=== PATIENT | female | born 1990 | race African-American/Black ===

== ENCOUNTER 2022-09-28 11:23 | Emergency (ER) | payer MEDICAID, OTHER ==
[~2022-09-28] VITALS: Ht 167.6 cm; Wt 71.0 kg
[~2022-09-28 11:23] MED LIST: IBUP-2029 MT
[2022-09-28 11:29] VITALS: O2SAT 98
[2022-09-28 12:06] LABS: BASOPHILS % 1.1 % (0.0-2.0); EOSINOPHILS % 1.9 % (0.0-5.0); HEMATOCRIT. 34.8 % (36.0-48.0); HEMOGLOBIN. 11.6 g/dL (12.0-16.0); LYMPHOCYTES % 31.5 % (20.0-50.0); MEAN CORPUSCULAR VOLUME 89.9 fL (81.0-99.0); MEAN PLATELET VOLUME 7.5 fl (7.4-10.4); MONOCYTES % 8.9 % (2.0-8.0); NEUTROPHILS % 56.6 % (40.0-76.0); PLATELET 330 x1000/uL (130-400); RED BLOOD CELL COUNT 3.87 mill/uL (4.2-5.4); RED CELL DISTRIBUTION WIDTH 13.8 % (11.6-14.6)
[2022-09-28 12:18] LABS: CHLORIDE 109 mEq/L (98-107)
[2022-09-28 12:31] LABS: CLARITY URINE CLOUDY (CLEAR); COLOR URINE YELLOW (YELLOW); KETONES URINE NEGATIVE (NEGATIVE); LEUKOCYTE ESTERASE URINE 1+ (NEGATIVE); NITRITE URINE POSITIVE (NEGATIVE); OCCULT BLOOD URINE TRACE (NEGATIVE); PH URINE 7.5 (4.5-8.0); PROTEIN URINE NEGATIVE (NEGATIVE); SPECIFIC GRAVITY URINE 1.016 (1.005-1.030)
[2022-09-28] MEDS ORDERED: ACETAMINOPHEN 325MG TABLET PO STA (15:02)
[2022-09-28] MEDS ORDERED: SODIUM CHLORIDE 0.9% 1,000 ML IV ONE (15:15)
[2022-09-28 16:55] LABS: PROTHROMBIN TIME 10.4 sec (9.6-11.0)
[2022-09-28] MEDS ORDERED: ONDA4TAB50 MT (16:57)
[2022-09-28] MEDS ORDERED: NAPR220C61 MT (16:57)
[2022-09-28] MEDS ORDERED: CEPH500C2 MT (17:13)
[2022-09-28 18:00] VITALS: BP 104/65; PULSE 67; RESP 18; TEMP 97.6
== END 2022-09-28 18:01 | disposition home or self-care (01) ==
LOC: ER 11:23
DX: N83.201 Unspecified ovarian cyst, right side (principal); D64.9 Anemia, unspecified; N39.0 Urinary tract infection, site not specified; F32.9 Major depressive disorder, single episode, unspecified; Z98.890 Other specified postprocedural states
CPT/HCPCS: 80053; 81003; 81025; 83690; 85025; 85610; 86850; 86900; 86901; 87086; 87186; 87077; 36415; 76830; 76856; 96360; 99284; J7030; Z7610 ×2